=== PATIENT | female | born 1965 | race Caucasian/White ===

== ENCOUNTER 2016-11-19 12:09 | Emergency (ER) | payer OTHER, MEDICARE | END 2016-11-19 13:48 | disposition home or self-care (01) | LOC: FER 12:09 | DX: M19.071 Primary osteoarthritis, right ankle and foot (principal); R26.2 Difficulty in walking, not elsewhere classified; I51.9 Heart disease, unspecified; E78.5 Hyperlipidemia, unspecified; F17.210 Nicotine dependence, cigarettes, uncomplicated; Z86.73 Personal history of transient ischemic attack (TIA), and cerebral infarction without residual deficits; Z88.5 Allergy status to narcotic agent; Z88.6 Allergy status to analgesic agent; Z88.8 Allergy status to other drugs, medicaments and biological substances; Z98.890 Other specified postprocedural states; Z79.82 Long term (current) use of aspirin; Z79.899 Other long term (current) drug therapy | CPT/HCPCS: J1030 ==

== ENCOUNTER 2021-01-15 11:24 | Emergency (ER) | payer OTHER ==
[~2021-01-15] VITALS: Ht 157.5 cm; Wt 67.6 kg
[2021-01-15 12:25] LABS: BASOPHIL 0.4 % (0-2); EOSINOPHIL 0.7 % (0-5); HCT 41.8 % (37.0-47.0); MCH 31.1 pg (25.0-31.0); MCHC 33.5 g/dL (32.0-36.0); MCV 92.9 fL (78.0-100.0); MONOCYTE 5.7 % (0-12); MPV 10.5 fL (6.0-9.5); NEUTROPHIL 70.7 % (41-80); NRBC 0; PLT 219 K/uL (150-400); WBC 15.3 K/uL (4.0-10.5)
[2021-01-15 12:41] LABS: ALBUMIN 4.2 g/dL (3.4-5.0); BILIRUBIN - TOTAL 0.4 mg/dL (0.2-1.0); BUN/CREAT RATIO (CALC) 16.5 RATIO; CREATININE 0.79 mg/dL (0.51-0.95); GLOBULIN (CALCULATION) 3.2 g/dL; POTASSIUM 4.1 mmol/L (3.5-5.1); TOTAL PROTEIN 7.4 g/dL (6.4-8.2)
[2021-01-15 12:57] LABS: LACTIC ACID 0.9 mmol/L (0.4-1.9)
[2021-01-15] MEDS ORDERED: AUGMENTIN 875-1 EACH PO (14:54)
[2021-01-15] MEDS ORDERED: BENTYL10 MG PO (14:54)
[2021-02-21] MEDS ORDERED: LIPITOR40 MG PO (13:48)
[2021-02-21] MEDS ORDERED: TOPROL XL50 MG PO (13:49)
[2021-02-21] MEDS ORDERED: TRAZODONE 100M100 MG PO (13:50)
[2021-02-21] MEDS ORDERED: IMITREX100 MG PO (13:51)
== END 2021-01-15 15:45 | disposition home or self-care (01) ==
LOC: FER 11:24
PROVIDERS: Emergency Medicine Emergency Medical Services
DX: K52.9 Noninfective gastroenteritis and colitis, unspecified (principal); J98.11 Atelectasis; E78.5 Hyperlipidemia, unspecified; F17.200 Nicotine dependence, unspecified, uncomplicated; Z90.49 Acquired absence of other specified parts of digestive tract; Z98.890 Other specified postprocedural states; Z88.6 Allergy status to analgesic agent; Z88.8 Allergy status to other drugs, medicaments and biological substances; Z87.19 Personal history of other diseases of the digestive system
CPT/HCPCS: 36415; 71045; 80053; 83605; 83690; 84145; 84484; 85025; 93005; J0696; J2270; J2405; J7030; Q9967

== ENCOUNTER → 2021-02-28 | Day surgery (SDC) | payer OTHER ==
[~2021-02-28] VITALS: Ht 157.5 cm; Wt 65.8 kg
[~2021-02-28] MED LIST: AUGMENTIN 875-1 EACH PO; BENTYL10 MG PO; IMITREX100 MG PO; LIPITOR40 MG PO; MEDROL 4MG DOSEP4 MG PO; NORCO 5-325 TA1 EACH PO; ROBAXIN750 MG PO; TOPROL XL50 MG PO; TRAZODONE 100M100 MG PO
== END | disposition home or self-care (01) ==
LOC: FAS 09:52
DX: D12.5 Benign neoplasm of sigmoid colon (principal); K57.30 Diverticulosis of large intestine without perforation or abscess without bleeding; K52.9 Noninfective gastroenteritis and colitis, unspecified; I10 Essential (primary) hypertension; I25.10 Atherosclerotic heart disease of native coronary artery without angina pectoris; F41.9 Anxiety disorder, unspecified; E78.5 Hyperlipidemia, unspecified; E78.00 Pure hypercholesterolemia, unspecified; M19.90 Unspecified osteoarthritis, unspecified site; J45.909 Unspecified asthma, uncomplicated; M54.2 Cervicalgia; M25.559 Pain in unspecified hip; G89.29 Other chronic pain; Z90.710 Acquired absence of both cervix and uterus; G47.00 Insomnia, unspecified; G40.909 Epilepsy, unspecified, not intractable, without status epilepticus; G43.909 Migraine, unspecified, not intractable, without status migrainosus; M81.0 Age-related osteoporosis without current pathological fracture; F17.210 Nicotine dependence, cigarettes, uncomplicated; Z79.899 Other long term (current) drug therapy; Z88.5 Allergy status to narcotic agent; Z88.8 Allergy status to other drugs, medicaments and biological substances; Z20.822 Contact with and (suspected) exposure to COVID-19; Z90.49 Acquired absence of other specified parts of digestive tract
CPT/HCPCS: J2704; J7120; U0002

== ENCOUNTER 2021-03-10 08:28 | Emergency (ER) | payer OTHER ==
[~2021-03-10 08:28] MED LIST changes: -MEDROL 4MG DOSEP4 MG PO; -NORCO 5-325 TA1 EACH PO; -ROBAXIN750 MG PO
[2021-03-10] MEDS ORDERED: MEDROL 4MG DOSEP4 MG PO (11:14)
[2021-03-10] MEDS ORDERED: NORCO 5-325 TA1 EACH PO (11:14)
[2021-03-10] MEDS ORDERED: ROBAXIN750 MG PO (11:14)
== END 2021-03-10 11:25 | disposition home or self-care (01) ==
LOC: FER 08:28
DX: M50.11 Cervical disc disorder with radiculopathy, high cervical region (principal); F17.210 Nicotine dependence, cigarettes, uncomplicated
CPT/HCPCS: 72125